=== PATIENT | female | born 1995 | race Caucasian/White ===

== ENCOUNTER 2020-02-11 14:12 | Emergency (ER) | payer OTHER ==
[~2020-02-11] VITALS: Ht 170.2 cm; Wt 68.0 kg
[2020-02-11 15:16] LABS: ABSOLUTE NEUTROPHILS 8.3 thou/uL (1.4-8.2); BASOPHILS 0.6 % (0.0-2.0); EOSINOPHILS 0.1 % (0.0-3.0); HEMATOCRIT 43.1 % (37.0-47.0); HEMOGLOBIN 15.1 gm/dL (12.0-15.0); LYMPHOCYTES 11.5 % (24.0-44.0); MCH 32.5 pg (26.0-34.0); MCV 92.7 fL (80.0-100.0); MONOCYTES 5.3 % (1.0-8.0); PLATELET COUNT 280 thou/uL (150-400); POLYS 82.5 % (36.0-66.0); RBC 4.65 mil/uL (4.20-5.00); RDW 12.4 % (10.5-14.5); WBC 10.1 thou/uL (4.0-11.0)
[2020-02-11 15:26] LABS: ANION GAP 12 mmol/L (7-16); BUN 8 mg/dL (7-18); CALCIUM 9.8 mg/dL (8.5-10.1); CHLORIDE 101 mmol/L (98-107); CO2 25 mmol/L (21-32); CREATININE 0.7 mg/dL (0.6-1.0); GLUCOSE 86 mg/dL (74-106); POTASSIUM 3.9 mmol/L (3.5-5.1); SODIUM 138 mmol/L (136-145)
[2020-02-11 15:37] LABS: ALBUMIN 4.5 g/dL (3.4-5.0); SGOT 39 U/L (15-37); SGPT 52 U/L (30-65); TOTAL BILIRUBIN 0.9 mg/dL (0.2-1.0); TROPONIN-I <0.06 ng/mL (<0.06)
[2020-02-11 15:57] LABS: URINE BILIRUBIN NEGATIVE (Negative); URINE BLOOD NEGATIVE (Negative); URINE CLARITY CLEAR; URINE COLOR YELLOW; URINE GLUCOSE-RANDOM* NEGATIVE (Negative); URINE KETONES 1+ (Negative); URINE PROTEIN (DIPSTICK) NEGATIVE (Negative); URINE SPECIFIC GRAVITY <= 1.005 (1.005-1.035); URINE UROBILINOGEN 0.2 E.U./dl (0.2-1.0)
[2020-02-11 15:58] LABS: URINE LEUKOCYTES-REFLEX 1+ (Negative); URINE NITRITE-REFLEX POSITIVE (Negative)
[2020-02-11 16:05] LABS: CASTS None Seen /LPF (None Seen); SQUAMOUS 4-10 Moderate /LPF (0-3)
[2020-02-11 16:06] LABS: BACTERIA-REFLEX >30 Many /HPF (None Seen); URINE WBC-REFLEX 6-15 Few /HPF (0-5)
[2020-02-11 16:07] LABS: CRYSTALS None Seen /LPF (None Seen); URINE RBC None Seen /HPF (0-2)
[2020-02-11] MEDS ORDERED: KEFLEX500 M1 PO (17:08)
[2020-02-11 18:58] VITALS: BP 118/72
--- NOTE | 2020-02-12 07:08 | EKG ---
[facility] [address] [place] [address] ELECTROCARDIOGRAM REPORT Name: LORENZO LAWTON Room #: [facility]#: [id number] Admission: 02/11/20 Attend Phys: Discharge: 02/11/20 Date of : [birth year] Report #: [id number] THIS REPORT FOR: cc: MARCELO Yancey family physician/PCP MARCELO Yancey family physician/PCP Kermit Gonzalez MD [facility] ~ THIS REPORT FOR: //name// [facility] ED Test Date: 2020-02-11 Test Time: 14:58:24 Pat Name: LORENZO LAWTON Department: Room: Gender: F Chain Hooker: chrisitan : 1995 Requested By: Lauren Roa Order Number: [id number] MD: Kermit Gonzalez Measurements Intervals Irma Rate: 101 P: 55 SD: 112 QRS: 22 QRSD: 89 T: 12 QT: 346 QTc: 449 Interpretive Statements Sinus tachycardia Borderline T abnormalities, anterior leads No previous ECG available for comparison Electronically Signed On 02-12-2020 7:08:22 CDT by Kermit Gonzalez [email or web address] <ELECTRONICALLY SIGNED> By: Kermit Gonzalez MD, FACC 09/707 57 57 Kermit Gonzalez MD, [facility] /EPI
== END 2020-02-11 18:58 | disposition home or self-care (01) ==
LOC: ER 14:12
PROVIDERS: Physician Assistant
DX: R00.2 Palpitations (principal); N39.0 Urinary tract infection, site not specified; R00.0 Tachycardia, unspecified; R06.02 Shortness of breath; R20.0 Anesthesia of skin; R20.2 Paresthesia of skin; Z85.3 Personal history of malignant neoplasm of breast